=== PATIENT | male | born 1990 | race Caucasian/White ===

== ENCOUNTER 2017-02-14 07:26 | Emergency (ER) | payer OTHER ==
[2017-02-14 08:31] LABS: Hematocrit 46 % (42-52); Hemoglobin 15.6 g/dl (14.0-18.0); Mean Corpuscular HGB Conc 34 g/dl (31-36); Mean Corpuscular Hemoglobin 31 pg (27-31); Mean Corpuscular Volume 92 fL (80-94); Mean Platelet Volume 8 um3 (7.4-10.4); Red Blood Count 4.98 10^6/ul (4.0-5.4); Red Cell Distribution Width 12 % (10.5-15); White Blood Count 7.7 10^3/ul (3.5-10.8)
[2017-02-14 08:46] LABS: ALT 13 U/L (7-52); AST 19 U/L (13-39); Albumin 4.7 g/dL (3.2-5.2); Alkaline Phosphatase 41 U/L (34-104); Anion Gap 7 mmol/L (2-11); BUN/Creatinine Ratio 11.7 (8-20); Blood Urea Nitrogen 12 mg/dL (6-24); CO2 Carbon Dioxide 27 mmol/L (22-32); Calcium 9.5 mg/dL (8.6-10.3); Chloride 100 mmol/L (101-111); EGFR African American 114.1 (>60); EGFR Non-African American 88.7 (>60); Glucose 100 mg/dL (70-100); Potassium 3.7 mmol/L (3.5-5.0); Sodium 134 mmol/L (133-145); Total Protein 7.7 g/dL (6.4-8.9)
[2017-02-14 08:50] LABS: Urine Bilirubin Negative (Negative); Urine Glucose Negative (Negative); Urine Nitrite Negative (Negative)
[2017-02-14 09:04] LABS: Benzodiazepine Urine Screen None Detected (None Detect)
[2017-02-14 09:18] LABS: Acetaminophen < 15 mcg/mL; Alcohol < 10 mg/dL (<10); Salicylate < 2.50 mg/dL (<30)
[2017-02-14 09:28] LABS: TSH (Thyroid Stimulating Horm) 3.88 mcIU/mL (0.34-5.60)
[2017-02-14 15:14] VITALS: BP 117/58
--- NOTE | 2017-02-14 18:03 | ED ---
Suresh Elise Billy, scribed for Van Plascencia MD on 02/14/17 at 0758 . Psychiatric Complaint - HPI Summary HPI Summary: Patient is a 26 year-old male coming to [facility] for psychiatric evaluation. He states that yesterday, he "broke down" and has been "freaking out." When asked about any specific triggers, the states, "everything that happened, everything that's crashing down, I don't know how to process it." Patient has thoughts of self-harm without any specific plan. He denies any similar prior episodes. Denies any significant past medical history, including any psychiatric history, although there is a family history of bipolar disorder, schizophrenia, depression, and multiple personality disorder. - History Of Current Complaint Chief Complaint: EDMentalHealth Time Seen by Provider: 02/14/17 07:56 Hx Obtained From: Patient Onset/Duration: Gradual Onset, Lasting Days Timing: Constant Severity Initially: Moderate Severity Currently: Moderate Character: Anxious Aggravating Factor(s): Recent Stress Alleviating Factor(s): Nothing Related History: Negative For: Prior Psychiatric Issues Has Suicidal: Reports: Thoughts. Denies: With A Plan Has Homicidal: Denies: Thoughts, With A Plan - Allergies/Home Medications Allergies/Adverse Reactions: Allergies Allergy/AdvReac Type Severity Reaction Status Date / Time Penicillins Allergy Severe throat Verified 11/17/12 17:03 jessie hodges PMH/Surg Hx/FS Hx/Imm Hx Endocrine/Hematology History: Denies: Hx Diabetes, Hx Thyroid Disease Cardiovascular History: Denies: Hx Hypertension Respiratory History: Reports: Hx Asthma Denies: Hx Chronic Obstructive Pulmonary Disease (COPD) GI History: Denies: Hx Ulcer - Surgical History Surgery Procedure, Year, and Place: TENDON REPAIR,RIGHT HAND. Infectious Disease History: Denies: Hx Hepatitis, Hx Human Immunodeficiency Virus (HIV), Traveled Outside the [place] in Last 30 Days - Family History Family History: Family history of bipolar disorder, schizophrenia, depression, and multiple personality disorder. - Social History Alcohol Use: None Substance Use Type: Reports: Marijuana Smoking Status (MU): Current Some Day Smoker Review of Systems Negative: Fever Psychological: Other - See HPI All Other Systems Reviewed And Are Negative: Yes Physical Exam - Summary Physical Exam Summary: VITAL SIGNS: Reviewed. GENERAL: Patient is a well developed and nourished male who is lying comfortable in the stretcher. Patient is not in any acute respiratory distress. HEAD AND FACE: No signs of trauma. No ecchymosis, hematomas or skull depressions. No sinus tenderness. EYES: PERRLA, EOMI x 2, No injected conjunctiva, no nystagmus. EARS: Hearing grossly intact. Ear canals and tympanic membranes are within normal limits. MOUTH: Oropharynx within normal limits. NECK: Supple, trachea is midline, no adenopathy, no JVD, no carotid bruit, no c- spine tenderness, neck with full ROM. CHEST: Symmetric, no tenderness at palpation LUNGS: Clear to auscultation bilaterally. No wheezing or crackles. CVS: Regular rate and rhythm, S1 and S2 present, no murmurs or gallops appreciated. ABDOMEN: Soft, non-tender. No signs of distention. No rebound no guarding, and no masses palpated. Bowel sounds are normal. EXTREMITIES: FROM in all major joints, no edema, no cyanosis or clubbing. NEURO: Alert and oriented x 3. No acute neurological deficits. Speech is normal and follows commands. SKIN: Dry and warm PSYCH: Depressed, quiet, positive suicidal thoughts and plan. No homicidal thoughts or plan. No signs of psychosis or pressure speech. No tangential speech. Triage Information Reviewed: Yes Vital Signs On Initial Exam: Initial Vitals Temp Pulse Resp BP Pulse Ox 98.3 F 104 18 131/72 100 02/14/17 07:30 02/14/17 07:30 02/14/17 07:30 02/14/17 07:30 02/14/17 07:30 Vital Signs Reviewed: Yes Diagnostics - Vital Signs Vital Signs Temp Pulse Resp BP Pulse Ox 02/14/17 07:30 98.3 F 104 18 131/72 100 - Laboratory Result Diagrams: 02/14/17 08:23 02/14/17 08:23 Lab Statement: Any lab studies that have been ordered have been reviewed, and results considered in the medical decision making process. Course/Dx - Course Assessment/Plan: Patient is a 26 year-old male coming to [facility] for psychiatric evaluation. He states that yesterday, he "broke down" and has been "freaking out." When asked about any specific triggers, the states, "everything that happened, everything that's crashing down, I don't know how to process it." Patient has thoughts of self-harm without any specific plan. He denies any similar prior episodes. Denies any significant past medical history, including any psychiatric history, although there is a family history of bipolar disorder , schizophrenia, depression, and multiple personality disorder. The patient was evaluated by Dr. Grimm, who determined that he was ready for discharge. - Differential Dx/Clinical Impression Differential Diagnosis/HQI/PQRI: Positive: Acute Psychosis, Anxiety, Depression , Suicidal Ideation Provider Diagnosis: Intermittent aggressive disorder Discharge - Discharge Plan Condition: Stable Disposition: HOME Referrals: No Primary Care Phys,NOPCP [Primary Care Provider] - The documentation as recorded by the Suresh colbert Billy accurately reflects the service I personally performed and the decisions made by me, Van Plascencia MD.
== END 2017-02-14 18:03 | disposition home or self-care (01) ==
LOC: ED 07:26
DX: F63.81 Intermittent explosive disorder (principal); Z72.0 Tobacco use
CPT/HCPCS: 36415; 80053; 80307; 80320; 80329; 81003; 84443; 85025; 99283; G0480

== ENCOUNTER 2017-08-15 15:47 | Emergency (ER) | payer SELFPAY ==
[2017-08-15 16:41] VITALS: BP 129/67
--- NOTE | 2017-08-15 16:55 | UC ---
Lower Extremity/Ankle HPI - HPI Summary HPI Summary: 27 year old female with foot pain. TODAY AT ABOUT 1430 PT STEPPED ON A NAIL OUTSIDE HIS HOME. NAIL WAS ABOUT 3 INCHES LONG. WENT THROUGH HIS SNEAKER AND "HIT BONE". FOOT pain in the right foot He is concerned for FB - History of Current Complaint Chief Complaint: UCLowerExtremity Stated Complaint: RIGHT FOOT-STEPPED ON NAIL Time Seen by Provider: 08/15/17 16:52 Hx Obtained From: Patient Onset/Duration: Sudden Onset - 30 min ago Aggravating Factor(s): Standing Alleviating Factor(s): Rest Able to Bear Weight: Yes - Allergies/Home Medications Allergies/Adverse Reactions: Allergies Allergy/AdvReac Type Severity Reaction Status Date / Time Penicillins Allergy Severe throat Verified 08/15/17 16:34 jessie hodges PMH/Surg Hx/FS Hx/Imm Hx Previously Healthy: Yes - Surgical History Surgical History: Yes Surgery Procedure, Year, and Place: TENDON REPAIR,RIGHT HAND. EMERGECY SURGERY LEFT FOOT, ABSCESSED PLANTAR WART - Family History Known Family History: Positive: Other - see fam Hx Family History: Family history of bipolar disorder, schizophrenia, depression, and multiple personality disorder. - Social History Occupation: Employed Full-time Lives: With Family Alcohol Use: None Substance Use Type: Marijuana Smoking Status (MU): Former Smoker - Immunization History Most Recent Tetanus Shot: UNKNOWN Review of Systems Musculoskeletal: Other: - foot pain Is Patient Immunocompromised?: No All Other Systems Reviewed And Are Negative: Yes Physical Exam Triage Information Reviewed: Yes Appearance: Well-Appearing, No Pain Distress, Well-Nourished Vital Signs: Initial Vital Signs Temp 98.8 F 08/15/17 16:34 Pulse 101 08/15/17 16:34 Resp 20 08/15/17 16:34 BP 129/67 08/15/17 16:34 Pulse Ox 99 08/15/17 16:34 Vital Signs Reviewed: Yes Respiratory Exam: Normal Cardiovascular Exam: Normal Musculoskeletal Exam: Normal Neurological Exam: Normal Psychological Exam: Normal Skin Exam: Normal Skin: Positive: Other - small round punctate lesion bottom of right foot near the base of the 1st MTP. no bleeding. no discharge. no effusion. no FB noted. Lower Extremity Course/Dx - Course Course Of Treatment: neg xray. tetanus updated. if any s/s of infection go to ED. Nail was potentially well. cover pseudomonas. he was counseled of S/S of infection. - Differential Dx/Diagnosis Provider Diagnoses: Right foot pain, stepped on nail Discharge - Discharge Plan Condition: Good Disposition: HOME Prescriptions: Ciprofloxacin HCl [Cipro 500 MG TAB] 500 mg PO BID #10 tab Patient Education Materials: Puncture Wound (ED) Referrals: No Primary Care Phys,NOPCP [Primary Care Provider] - Additional Instructions: You received the tetanus shot today and your xray shows no acute concerns.
[2017-08-15] MEDS ORDERED: Tetan/Diph/Pertus SYR(Tdap)* 0.5 ML SYR(BOOSTRIX) use SYR IM ONE (17:23)
--- NOTE | 2017-08-15 18:01 | RAD ---
Indication: Stepped on a nail. Question foreign body. Comparison: No relevant prior exams available on the [facility] PACS for comparison. Technique: AP and lateral views RIGHT foot. REPORT AND IMPRESSION: Significant soft tissue swelling along the plantar aspect of the foot at the level of the metatarsal phalangeal joints. No conspicuous foreign body or subcutaneous emphysema. Negative for fracture or malalignment.
== END 2017-08-15 18:12 | disposition home or self-care (01) ==
LOC: UCCORT 15:47
DX: S91.331A Puncture wound without foreign body, right foot, initial encounter (principal); W45.0XXA Nail entering through skin, initial encounter; Y93.9 Activity, unspecified; Y92.007 Garden or yard of unspecified non-institutional (private) residence as the place of occurrence of the external cause; Z23 Encounter for immunization; Z88.0 Allergy status to penicillin; F12.90 Cannabis use, unspecified, uncomplicated; Z87.891 Personal history of nicotine dependence
CPT/HCPCS: 90471; 90715; 99212; G0463